=== PATIENT | female | born 1990 | race Hispanic/Latino ===

== ENCOUNTER 2024-12-11 07:26 | Observation (INO) | payer OTHER, SELFPAY ==
[2024-12-11] VITALS (10 sets, daily range): BP systolic 102–159; BP diastolic 58–80; PULSE 66–117; RESP 11–18; TEMP 36.3–36.9; O2SAT 95–100; BMI 30.9
--- NOTE | 2024-12-11 | PATH_ITS ---
[facility] Accession Number: [id number] No. of containers..02 Tissue . 01 Material submitted: . PART A: product of conception - PRODUCTS OF CONCEPTION PART B: endometrium - ENDOMETRIAL CURETTINGS . 01 Diagnosis: A. SPECIMEN DESIGNATED PRODUCTS OF CONCEPTION: Blood clot only. No chorionic villi or other products of conception identified. . B. ENDOMETRIUM: Fragments of nonproliferative endometrium with decidualized stroma, suggestive of progesterone effect. No chronic villi or other products of conception identified. [facility] 12/14/2024 1738 Local . 01 Electronically signed: . Olesya Burgos MD, Pathologist NPI- [id number] . 01 Gross description: . A. Received in formalin with two identifiers and products of conception, are multiple fragments of archer to red-brown soft tissue admixed with mucohemorrhagic material aggregating to 2.6 x 0.8 x 0.2 cm. No tissue is identified. The specimen is filtered and submitted entirely in cassette A1. B. Received in formalin with two identifiers and endometrial curettings, are multiple red-brown soft tissue fragments admixed with mucohemorrhagic material aggregating to 2.8 x 2.2 x 0.3 cm. Filtered and submitted entirely in cassettes B1-B2. ([id number]) /CHRIS 12/14/2024 0812 Local . 01 Pathologist provided ICD-10: N93.9 . 01 CPT . 211584, [id number] Specimen Comment: A courtesy copy of this report has been sent to [facility] Pathology Performed at: [address], [place], [place] [id number] MD Atul Jimenez MD Phone: [phone]
--- NOTE | 2024-12-11 07:55 | DI.US.S_ITS ---
PROCEDURE: US OB <= 14 WEEKS FETUS INDICATIONS: BLEEDING X 1 DAY. LEFT ADENXA PAIN. TECHNIQUE: Real-time scanning was performed of the fetus and maternal pelvic organs, with image documentation. Endovaginal scanning was also performed to better visualize the fetus and maternal ovaries. COMPARISON: None. FINDINGS: Uterus appropriate in size with heterogenous echotexture. Endometrial thickness 8.5 mm. No intrauterine or gestational sac. In the right adnexa, there is a 1.7 cm solid lesion with internal vascularity separate from the right ovary for the right ovary measures 3.8 x 2.2 x 1.7 cm. In the left adnexa, the left ovary measures 3.7 x 2.0 x 1.8 cm. Additional 3.9 x 1.5 cm solid nodule adjacent to the left ovary with internal vascularity. Mild echogenic fluid in the left adnexa and posterior cul-de-sac. IMPRESSION: Possible ectopic . No intrauterine and solid nodules both in the right and left adnexa with internal vascularity. Note: Critical results were discussed with Dr. Love by the well puller at 9:15 a.m. Clarke time Approved by: Jose Luis Arcos M.D. on 12/11/2024 at 8:46
--- NOTE | 2024-12-11 09:22 | ED.PREGNANCY ---
HPI - General Chief complaint: Vaginal Bleeding Stated complaint: Stomach, back pain ,bleeding, possible ectopic Time Seen by Provider: 12/11/24 09:09 History of Present Illness HPI Narrative: 34-year-old female LMP November 03 history of right-sided ectopic in 2021 presents with left lower quadrant abdominal pain radiating to the back along with vaginal bleeding not soaking more than 1 pad an hour increasing in intensity sharp intermittent worse day since this past Friday-. Patient denies fever, chills, chest pain, shortness of breath, leg pain, leg swelling, passing clots or urinary symptoms. bird cage assembler was available at bedside. Other than what is stated 14 point review of system is negative. Related Data Allergies Allergy/AdvReac Type Severity Reaction Status Date / Time No Known Drug Allergies Allergy Verified 12/11/24 07:50 Review of Systems Review of Systems ROS Unobtainable: All systems reviewed & are unremarkable except as noted in HPI and below Exam Narrative Exam Narrative: GENERAL: [34] year old patient appears stated age. Well-developed patient, in mild distress. HEAD: Atraumatic. Normocephalic. EYES: Pupils equal round and reactive. Extraocular motions intact. No scleral icterus. No injection or drainage. NECK: Trachea midline. Non tender CARDIOVASCULAR: Regular rate and rhythm without murmurs, gallops, or rubs. RESPIRATORY: Clear to auscultation. Breath sounds equal bilaterally. No wheezes, rales, or rhonchi. GASTROINTESTINAL: Abdomen soft, mild LLQ but no r/r/g, nondistended. EXTREMITIES: No edema or joint tenderness. BACK: Nontender without deformity or crepitance. No flank tenderness. NEURO: AOx3. SKIN: No rash or erythema of visible areas Initial Vital Signs Initial Vital Signs: Vital Signs Temperature 97.6 F 12/11/24 07:47 Pulse Rate 70 12/11/24 07:47 Respiratory Rate 16 12/11/24 07:47 Blood Pressure 123/71 12/11/24 07:47 Pulse Oximetry 99 12/11/24 07:47 Oxygen Delivery Method Room Air 12/11/24 07:47 Course Orders Ordered: ED Orders 12/11/24 07:55 US OB <= 14 weeks fetus Stat Type and Screen Stat 12/11/24 09:10 Prothrombin Time INR Stat 12/11/24 09:15 Complete Blood Count AUTO DIFF Stat Comprehensive Metabolic Panel Stat HCG Quantitative /Beta subunit Stat Vital Signs Vital signs: Vital Signs - 8 hr 12/11/24 07:47 Temperature 97.6 F Pulse Rate 70 Respiratory Rate 16 Blood Pressure 123/71 Pulse Oximetry 99 Oxygen Delivery Method Room Air MDM - OB/Uterine Contractions Lab Data 12/11/24 09:15 12/11/24 09:15 Labs: Lab Results 12/11/24 12/11/24 Range/Units 09:10 09:15 WBC 7.0 (4.5-11.0) X10^3/uL RBC 4.28 (4.0-5.2) X10^6/uL Hgb 12.8 (12.0-16.0) g/dL Hct 37.9 (36-46) % MCV 88.6 (80-100) fL MCH 29.9 (26-34) PG MCHC 33.8 (30-36) % RDW 13.3 (11.6-14.8) % Plt Count 242 (150-400) X10^3/uL Neut % (Auto) 62.5 (50-75) % Lymph % (Auto) 28.6 (25-40) % [place] % (Auto) 6.3 (3-14) % Eos % (Auto) 2.1 (2-4) % Baso % (Auto) 0.5 (0-2) % Neut # (Auto) 4400 (5586-3116) /uL Lymph # (Auto) 2000 (0220-6732) /uL [place] # (Auto) 400 (0-900) /uL Eos # (Auto) 100 (0-450) /uL Baso # (Auto) 0 (0-100) /uL PT 12.5 (9.4-12.5) SECONDS INR 1.1 (0.9-1.3) Sodium 139 (137-145) mmol/L Potassium 3.7 (3.4-5.1) mmol/L Chloride 105 (98-107) mmol/L Carbon Dioxide 24 (22-32) mmol/L BUN 7 (7-17) mg/dL Creatinine 0.61 (0.52-1.04) mg/dL Estimated GFR > 60 (>60) mL/min BUN/Creatinine Ratio 11.5 (6-22) Glucose 94 (70-99) mg/dL Calcium 9.2 (8.4-10.2) mg/dL Total Bilirubin 0.6 (0.2-1.3) mg/dL AST 29 (14-36) IU/L ALT 30 (<35) IU/L Alkaline Phosphatase 85 (38-126) U/L Total Protein 7.8 (6.3-8.2) g/dL Albumin 4.6 (3.5-5.0) g/dL Globulin 3.2 (1.7-4.1) g/dL Albumin/Globulin Ratio 1.4 (1.0-2.8) HCG, Quant 87.36 mIU/mL Urine Dip Bedside Urine Glucose Negative Bedside Urine Bilirubin - Negative Bedside Urine Ketone - Negative Urine Specific [place] 1.015 Bedside Urine Occult Blood +++ Bedside Urine pH 6.0 Bedside Urine Protein - Negative Bedside Urine Urobilinogen - Negative Bedside Urine Nitrite - Negative Bedside Urine Leukocytes +/- 15 Esterase Imaging Data US - OB: Radiologist's Impression: [address] [address] Ultrasound Report Signed Patient: Ana Reynolds MR#: [id number] : 1990 Acct:[id number] Age/Sex: 34 / F Date of Service: 12/11/24 Loc: ED Accession Number: [id number] Procedure: US OB <= 14 weeks fetus Ordering Provider: John Love D.O. PROCEDURE: US OB <= 14 WEEKS FETUS INDICATIONS: BLEEDING X 1 DAY. LEFT ADENXA PAIN. TECHNIQUE: Real-time scanning was performed of the fetus and maternal pelvic organs, with image documentation. Endovaginal scanning was also performed to better visualize the fetus and maternal ovaries. COMPARISON: None. FINDINGS: Uterus appropriate in size with heterogenous echotexture. Endometrial thickness 8.5 mm. No intrauterine or gestational sac. In the right adnexa, there is a 1.7 cm solid lesion with internal vascularity separate from the right ovary for the right ovary measures 3.8 x 2.2 x 1.7 cm. In the left adnexa, the left ovary measures 3.7 x 2.0 x 1.8 cm. Additional 3.9 x 1.5 cm solid nodule adjacent to the left ovary with internal vascularity. Mild echogenic fluid in the left adnexa and posterior cul-de-sac. IMPRESSION: Possible ectopic . No intrauterine and solid nodules both in the right and left adnexa with internal vascularity. Note: Critical results were discussed with Dr. Love by the mechanical maintenance worker at 9:15 a.m. Clarke time Approved by: Jose Luis Arcos M.D. on 12/11/2024 at 8:46 MDM Narrative Medical decision making narrative: All lab work, vital signs, nurse triage note, medication list, previous ER visits, and all imaging studies reviewed. Case discussed with Dr.Van Casas, and Dr.Waring OBRIEN on-call both had emergent at this time asked that we call surrounding facilities to expedite patient's care at this point. white count normal at 7.0 hemoglobin 12.8 hematocrit 37.9 platelet 242, PT INR and beta quant pending at time of transfer. Case discussed with Dr. Luis Miguel RAGSDALE MD who has graciously accepted the patient for emergency transfer for ectopic with today's ultrasound. US report : Possible ectopic . No intrauterine and solid nodules both in the right and left adnexa with internal vascularity. since patient transport was not going to arrive until 2:[address] carlson was available to take the patient directly to or here and admitted as inpatient. Discharge Plan Departure Patient Disposition: Admitted As Inpatient Clinical Impression: Ectopic without intrauterine Admit Date/Time: 12/11/24 10:58 Admit Provider: Radha York
[2024-12-11 09:46] LABS: Add Manual Diff / Slide Review NO; Basophils Absolute Auto 0 /uL (0-100); Basophils Percent Auto 0.5 % (0-2); Eosinophils Absolute Auto 100 /uL (0-450); Eosinophils Percent Auto 2.1 % (2-4); Hematocrit 37.9 % (36-46); Hemoglobin 12.8 g/dL (12.0-16.0); Lymphocytes Absolute Auto 2000 /uL (1100-4500); Lymphocytes Percent Auto 28.6 % (25-40); Mean Corpuscular HGB Conc 33.8 % (30-36); Mean Corpuscular Hemoglobin 29.9 PG (26-34); Mean Corpuscular Volume 88.6 fL (80-100); Monocytes Absolute Auto 400 /uL (0-900); Monocytes Percent Auto 6.3 % (3-14); Neutrophils Absolute Auto 4400 /uL (1500-7000); Neutrophils Percent Auto 62.5 % (50-75); Platelet Count 242 X10^3/uL (150-400); Red Blood Cell Count 4.28 X10^6/uL (4.0-5.2); Red Cell Distribution Width 13.3 % (11.6-14.8)
[2024-12-11 09:52] LABS: Alanine Aminotransferase 30 IU/L (<35); Albumin 4.6 g/dL (3.5-5.0); Albumin Globulin Ratio 1.4 (1.0-2.8); Alkaline Phosphatase 85 U/L (38-126); Aspartate Aminotransferase 29 IU/L (14-36); BUN Creatinine Ratio 11.5 (6-22); Bilirubin Total 0.6 mg/dL (0.2-1.3); Blood Urea Nitrogen 7 mg/dL (7-17); Calcium 9.2 mg/dL (8.4-10.2); Carbon Dioxide 24 mmol/L (22-32); Chloride 105 mmol/L (98-107); Estimated Glomerular Filt Rate > 60 mL/min (>60); Globulin 3.2 g/dL (1.7-4.1); Glucose 94 mg/dL (70-99); HEMOLYSIS 22 (0-50); Potassium 3.7 mmol/L (3.4-5.1); Sodium 139 mmol/L (137-145); Total Protein 7.8 g/dL (6.3-8.2)
[2024-12-11 10:06] LABS: INR 1.1 (0.9-1.3); Prothrombin Time 12.5 SECONDS (9.4-12.5)
[2024-12-11 10:09] LABS: HCG Quantitative /Beta subunit 87.36 mIU/mL
--- NOTE | 2024-12-11 10:50 | PM.GYNHP.1 ---
History of Present Illness History of Present Illness Narrative: Ana Maya is a 34 year old female at unknown early gestational age presents to ED with c/o new LLQ pain. She presented to ED for further evaluation secondary to personal h/o prior ectopic 3 years ago that necessitated emergent surgery. She has not yet had any care. Unplanned but strongly desired . On presentation to ED pt was noted to be uncomfortable but without acute surgical abdomen, hemodynamically stable. Pelvic US was obtained with evidence of CDS fluid and L adnexal mass with vascularization consistent with ruptured ectopic. OBGYN consulted for further evaluation. Initially SHEET METAL DUCT INSTALLER APPRENTICE provider unavailable due to intervening surgical procedure with request for transfer to nearest available facility. Patient was unable to be accepted for transfer until 1400; in interim surgical case was completed and I was then available to see patient in the ED. Patient is Slovenian speaking only, entirety to today's assessment, interview, exam and counseling completed with assistance of Slovenian game design instructor #[id number] Pt states onset of LLQ pain 6/5 with slow progression since, associated with moderate vaginal bleeding forrest to a period but not soaking a pad <1h. She states pain radiates to her lower back and she has a sensation of rectal pressure. She is aware of US findings with indication for repeat procedure. She states that she had laparoscopic surgery 3 years ago for management of prior R ectopic but cannot recall if the fallopian tube was removed at time of procedure (Fabian). She denies any additional significant medical history, only prior surgery dx lap for mgmt of prior ectopic. Sure LMP 11/03/24, bHCG 87.36 PFSH Social History household members: spouse alcohol intake: current Meds Home Medications and Allergies Home Medications ?Medication ?Instructions ?Recorded ?Confirmed ?Type No Known Home Medications 12/11/24 12/11/24 History Allergies Allergy/AdvReac Type Severity Reaction Status Date / Time No Known Drug Allergies Allergy Verified 12/11/24 11:37 Review of Systems Review of Systems ROS: Yes All systems reviewed with the patient and are negative except as otherwise documented Exam Vital Signs (past 8 hours): - 12/11/24 07:47 Temperature 97.6 F Pulse Rate 70 Respiratory Rate 16 Blood Pressure 123/71 Pulse Oximetry 99 Oxygen Delivery Method Room Air Oxygen Delivery Method Room Air Const General: cooperative, comfortable and well developed Nutritional Appearance: obese Orientation: alert, awake and oriented x3 Limitations: mental status not altered HENMT Head: normal to inspection Resp Effort & Inspection: normal respiratory effort and able to speak in complete sentences Cardio Pulses: normal peripheral pulses GI Inspection: normal to inspection Palpation: soft Other: diffusely tender LLQ, equivocal rebound without guarding Other: deferred Skin General: no rashes or lesions noted Neuro General: patient alert, patient awake and patient oriented x3 Extrem General: normal to inspection Psych Mental Status: mental status grossly normal Judgment: judgment good Objective Imaging US - abdomen: My impression: hypervascular mass adjacent to L adnexae, +CDS fluid, no evidence of IUP --> suspected ectopic Radiologist's impression: suspected ectopic Labs 12/11/24 09:15 12/11/24 09:15 Labs: Laboratory Results - last 24 hr 12/11/24 12/11/24 09:10 09:15 WBC 7.0 RBC 4.28 Hgb 12.8 Hct 37.9 MCV 88.6 MCH 29.9 MCHC 33.8 RDW 13.3 Plt Count 242 Neut % (Auto) 62.5 Lymph % (Auto) 28.6 [place] % (Auto) 6.3 Eos % (Auto) 2.1 Baso % (Auto) 0.5 Neut # (Auto) 4400 Lymph # (Auto) 2000 [place] # (Auto) 400 Eos # (Auto) 100 Baso # (Auto) 0 PT 12.5 INR 1.1 Sodium 139 Potassium 3.7 Chloride 105 Carbon Dioxide 24 BUN 7 Creatinine 0.61 Estimated GFR > 60 BUN/Creatinine Ratio 11.5 Glucose 94 Calcium 9.2 Total Bilirubin 0.6 AST 29 ALT 30 Alkaline Phosphatase 85 Total Protein 7.8 Albumin 4.6 Globulin 3.2 Albumin/Globulin Ratio 1.4 HCG, Quant 87.36 Assessment & Plan Assessment and plan (1) Ectopic without intrauterine : Qualifiers: Laterality: unspecified laterality Status: Acute Plan 34yo at 5w3d by sure LMP presents with new onset vaginal bleeding and LLQ pain, US findings suggestive of ruptured ectopic with h/o prior ectopic Suspected ruptured ectopic US findings reviewed with patient. We discussed that with a very low bHCG it is possible that her current presentation may be an early miscarriage, however given US findings as well as personal h/o prior ectopic I am very concerned for recurrent ruptured ectopic with recommendation to proceed emergently to OR today. Patient verbalized understanding and in agreement with plan of care. We discussed that all attempts will be made to preserve her fallopian tube and ovary if at all possible, and all intraoperative findings will be reviewed with her and her postoperatively as well as at time of outpatient follow-up Patient is consented for diagnostic laparoscopy, removal of ectopic if found, possible salpingectomy, possible oophorectomy, dilation and curettage. We reviewed that per imaging as well as her presentation that I suspect the ectopic is on the left, however final laterality of procedure will be determined by intraoperative findings. Risks, benefits and alternatives to procedure were reviewed and patient affirms desire to proceed Dispo: to OR, anticipate dc to home same-day pending clinical recovery Time-Based Coding :: [TOTAL MINUTES] spent with patient and on the chart (including review of chart, obtaining history, exam, reviewing outside data, placing orders, documenting exam and treatment plan, and counseling patient) on [DATE].
--- NOTE | 2024-12-11 11:09 | PM.PREOP ---
Pre-operative Note Interval Note History & Physical reviewed/Exam performed by Physician: Yes Changes to H&P: No ASA Class (for procedural sedation): II
[2024-12-11] MEDS: ACETAMINOPHEN IV 1,000 MG/100 ML VIAL 400 MG IV (11:48)
--- NOTE | 2024-12-11 12:16 | SUR.OPER ---
Lithotomy on padded OR bed, head on pillow, arms secured on padded arm boards at <90 degrees abduction. Legs secured in padded yellow fins stirrups.
[2024-12-11] MEDS: BUPIVACAINE 0.5% W/ EPI (PF) 30 ML VIAL INJ (12:21)
--- NOTE | 2024-12-11 12:54 | P.OP_ITS ---
Operative Date/Time/Diagnoses Date of procedure: 12/11/24 Time of procedure: 12:00 Pre-op diagnosis: hemoperitoneum, suspected ruptured ectopic Post-op diagnosis: same Procedure & Clinicians Procedure: diagnostic laparoscopy, removal of L ectopic , dilation and curettage Same procedure as scheduled: Yes Indications: abnormal pelvic US, abdominal pain, vaginal bleeding, +UPT without evidence of IUP Surgeon: Shantelle Lopez Click Yes if Unassisted: Yes Anesthesia Type: General Operative Notes Findings: small volume hemoperitoneum noted on abdominal entry, surgically absent R fallop john tube, significant pelvic adhesions noted bilaterally consistent with either prior infection or endometriosis dilated L infundibulum without rupture intrauterine contents visually consistent with proliferative endometrium Closure Type: primary Specimen(s): other Prosthetic devices, grafts, tissues, transplants, or devices: 1) products of conception (suctioned from diagnostic laparoscopy) 2) endometrial currettings Estimated Blood Loss (mL): 5 Blood products transfused: none Procedure in detail: The patient was taken to the operating room, placed on the operating table in the supine position and intubated with ETT.? The patient was then placed in the lithotomy position with her legs in Indra stirrups.? The patient was then prepped and draped in a sterile fashion.? A oconnell catheter was placed.? Time out was performed. A sterile ring forceps with sponge was placed in the vagina for atraumatic uterine manipulation A 5mm incision was made infraumbilically and abdominal entry was achieved under direct visualization using the 5mm VisaPort trocar.? Abdomen was insufflated to 15mmHg.? A left lateral 5-mm port was placed in a similar manner under direct visualization.? The uterus was anteverted and abdominal survey was noted with findings as noted above. Using the atraumatic grasper the exposed partially expulsed clot/tissue was grasped at the level of the fimbrae and under gentle traction removed smoothly from the tube and specimen was placed in the anterior cul de sac. The fimbrae were visually inspected and noted to be grossly normal. The remainder of the tube was closely visualized in its entirety without evidence of persistent dilation or abnormality. Given surgically absent R fallopian tube and strongly desired future fertility decision made to leave L salpinx in situ as no rupture or compromise of tube visualized. The abdomen was suction irrigated. The gutters were inspected and noted to be clean and dry. Marked adhesions of cecum to R lateral sidewall however appendix visualized and normal in appearance. Insufflation was stopped and pneumoperitoneum was released. The skin incisions were closed with 4-0 monocryl followed by application of dermabond. Attention was then turned to vaginal portion of the case. The previously placed sterile sponge stick was removed and a sterile speculum was placed in the vagina. Parous cervix visualized with noted clot/tissue at external os. Anterior cervix grasped with single tooth tenaculum and under gentle traction the cervix was serially dilated using melgoza dilators to accommodate passage of the sharp currette. The endometrium was sharply curretted until a gritty texture was noted throughout. Tenaculum removed and hemostasis noted at insertion sites as well as at cervical os. The speculum was removed and hemostasis was again noted to be excellent.? The patient then had her legs taken out of stirrups.? The patient tolerated the procedure well and without difficulty.? The patient was awakened from anesthesia and taken to PACU in stable condition. Complications: none Post-operative Condition: stable Disposition: PACU Plan for aftercare: anticipate dc to home pending clinical recovery pt to be called to schedule routine 1wk f/u postop appointment in office
[2024-12-11] MEDS: HYDROMORPHONE 1 MG INJ IV (13:12)
[2024-12-11] MEDS: ONDANSETRON 4 MG/2 ML INJ IV (13:15)
[2024-12-11] MEDS: KETOROLAC 30 MG/ML VIAL IV (13:30)
[2024-12-11] MEDS: hydrOXYzine 50 MG/ML INJ 25 MG IM (13:38)
[2024-12-11] MEDS: LACTATED RINGERS 1,000 ML 42 ML IV ×2 (13:40→13:41)
== END 2024-12-11 14:32 | disposition home or self-care (01) ==
LOC: ED 09:45 → AC 11:02
PROVIDERS: Obstetrics & Gynecology; Admitting Provider Student in an Organized Health Care Education/Training Program; Emergency Provider Family Medicine; PCP Specialist; Referring Provider Family Medicine; Visit Provider Student in an Organized Health Care Education/Training Program
PROC: (CPT 49320; principal; 2024-12-11 11:45)
DX: O00.90 Unspecified ectopic pregnancy without intrauterine pregnancy (principal); K66.1 Hemoperitoneum; N73.6 Female pelvic peritoneal adhesions (postinfective); Z90.79 Acquired absence of other genital organ(s)
CPT/HCPCS: 49320; 59820; 76801; 76817; 80053; 81003; 84702; 85025; 85610; 86850; 86900; 86901; 96360; 99281; 99284; G0378; J0131; J0330; J1100; J1171; J1885; J2405; J2704; J3010; J3410; J3490